=== PATIENT | male | born 1990 | race Caucasian/White ===

== ENCOUNTER 2023-09-16 19:55 | Inpatient (IN) | payer SELFPAY ==
[2023-09-16] VITALS (38 sets, daily range): BP systolic 101–140; BP diastolic 71–116; PULSE 94–123; RESP 10–27; TEMP 36.4; O2SAT 96
--- NOTE | 2023-09-16 20:17 | ED.GENADUL_ITS ---
Discharge Plan Disposition Patient Disposition: Admit to [facility] Condition: Serious Discharge Details Chief Complaint: DrugWithdr/MAT Clinical Impression: 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 (MSSA), Acute hyperkalemia Primary Care Provider: None,None ED Provider: Josue Min Home Meds and New Rx's Prescriptions: No Action No Known Home Meds Medical Decision Making 2139 --33-year-old male with history of IV drug use, hepatitis C, recent bacterial endocarditis, incompletely treated, here having missed his bus stop in [place], feeling fatigued and requesting treatment for endocarditis. Patient is tachycardic, normotensive and afebrile. I obtained and reviewed outside hospital records: Discharge summary from [facility] hospitalization 08/26/2023 through 09/08/2023 noted PV and TV bacterial endocarditis and MSSA bacteremia with septic emboli to the lungs. Patient was discharged with plan for continued IV cefazolin 2 g every 8 hours until anticipated end date of IV antimicrobial therapy on 10/06/2023. Patient has been noncompliant with treatment plan. He is here seeking treatment and agreeable to treatment tonight. Patient is homeless and unable to secure outpatient treatment at this time. Plan to hospitalize for IV antimicrobial therapy until outpatient plan can be established. Plan to check blood cultures. I will give dose of IV cefazolin 2 g at this time. 2199 --patient reassessed remains tachycardic despite IV fluids. Unclear if this is withdrawal or related to endocarditis. I spoke with with hospitalist Dr. Dawson, discussed ED presentation and course. He will admit the patient for continued IV antibiotics with plan to coordinate outpatient treatment when stabilized. -- Patient currently has warrant out for the rest. [place] police here to take patient into custody. They will have officer remain at bedside. I Lab Data Lab results reviewed: Yes I reviewed the patient's lab results. Labs: Laboratory Tests Range/Units 09/16/23 20:25 WBC (4.4-10.8) 10^3/uL 11.41 H RBC (4.36-5.78) 10^6/uL 4.44 Hgb (13.5-17.5) g/dL 11.4 L Hct (40.0-50.0) % 36.2 L MCV (80-95) fL 82 MCH (27.0-33.0) pg 25.7 L MCHC (32.0-36.0) % 31.5 L RDW (11.8-14.1) % 17.2 H Plt Count (130-400) 10^3/uL 310 MPV (8.0-11.0) fL 10.6 Immature Gran % 0.4 Neutrophils % 57.4 Lymphocytes % 31.0 Monocytes % 9.0 Eosinophils % 1.3 Basophils % 0.9 Nucleated RBC % (0.0-0.3) % 0.0 Absolute Neutrophils (1.2-6.7) 10^3/uL 6.55 Absolute Lymphocytes (1.2-3.4) 10^3/uL 3.54 H Absolute Monocytes (0.1-0.8) 10^3/uL 1.03 H Absolute Eosinophils (0.0-0.7) 10^3/uL 0.15 Absolute Basophils (0.0-0.2) 10^3/uL 0.10 Sodium (136-145) mmol/L 135 L Potassium (3.5-5.1) mmol/L 5.7 H Chloride (98-107) mmol/L 100 Carbon Dioxide (21.0-32.0) mmol/L 27.2 Anion Gap (3-11) mmol/L 7.8 BUN (7-18) mg/dL 20 H Creatinine (0.70-1.30) mg/dL 1.0 Est GFR (CKD-EPI 2020) (mL/min/1.73m2) 101.28 Glucose (74-106) mg/dL 91 Calcium (8.5-10.1) mg/dL 9.7 Magnesium (1.8-2.4) mg/dL 1.9 Total Bilirubin (0.2-1.0) mg/dL 0.7 AST (15-37) U/L 67 H ALT (16-63) U/L 42 Alkaline Phosphatase (46-116) U/L 105 Troponin I (<or=60) ng/L < 50 Total Protein (6.4-8.2) g/dL 9.1 H Albumin (3.4-5.0) g/dL 3.7 HPI General Mode of arrival: EMS . Date/Time Provider Initiated Documentation: 09/16/23 20:17 . Limitations to Documentation: other . Information obtained by: EMS . HPI Narrative: 33-year-old male with history of IV drug use, hepatitis C, diagnosed with endocarditis at outside hospital ([facility] and [facility]), hospitalized 08/24 to 09/08/2023 and discharged with plan for continued IV cefazolin for 6 weeks with anticipated end date 10/06/2023 patient notes that he was staying at a facility where he was receiving IV antibiotics and that the facility was in disrepair and he decided to leave there against advice. He notes he was in living on the streets in [place]. He was able to secure bus fare from [place] to [place] and apparently missed his stop tonight in [place] and found his way to [place]. Patient presents now requesting treatment for endocarditis. He notes he has been feeling fatigued. Patient is a poor historian which does limit history and review of systems. Patient last used Suboxone 4 days ago. Patient denies recent IV drug use. Related Data Home Medications Medication Instructions Recorded Confirmed Unknown [No Known Home Meds] 09/16/23 09/16/23 Allergies Allergy/AdvReac Type Severity Reaction Status Date / Time No Known Allergies Allergy Unverified 09/16/23 20:11 General Stated Complaint: DrugWithdr/MAT DIDIER: 2 Review of Systems All systems reviewed & are unremarkable except as noted in HPI and below Constitutional Constitutional: Reports fatigue and Denies fever(s) Endocrine Endocrine: Reports fatigue PFSH All Active Problems (Updated 09/16/23 @ 23:56 by Josue Min MD) Acute hyperkalemia (Acute) Tachycardia (Acute) IV drug abuse (Acute) 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 (MSSA) (Acute) Hepatitis C (Chronic) Social History Smoking risk assessment performed?: No Substance use type: heroin Exam Const General: cooperative Orientation: alert and awake HENMT Mouth: moist mucous membranes Eyes Conjunctivae: normal conjunctivae Neck Neck: trachea midline Resp Auscultation: clear to auscultation bilaterally, no rales, no rhonchi and no wheezes Cardio Rate: tachycardic Rhythm: regular rhythm GI Palpation: soft, not firm, no guarding, no masses, not rigid and nontender Skin General skin exam: no rashes or lesions noted Neuro General: patient alert, patient awake and tone normal Extrem General: no edema Psych Appearance: grossly normal Course Vital Signs Vital signs: Vital Signs Temperature 36.4 C L 09/16/23 19:55 Pulse 120 H 09/16/23 19:55 Respiratory Rate 18 09/16/23 19:55 Blood Pressure 140/116 H 09/16/23 19:55 Pulse Oximetry 96 09/16/23 19:55 Temperature 36.4 C L 09/16/23 19:55 Pulse 120 H 09/16/23 19:55 Respiratory Rate 18 09/16/23 19:55 Respiratory Effort Normal 09/16/23 20:01 Blood Pressure 140/116 H 09/16/23 19:55 Blood Pressure Position Supine 09/16/23 19:55 Pulse Oximetry 96 09/16/23 19:55 Oxygen Delivery Method Room Air 09/16/23 19:55 Oxygen Flow Rate 0 09/16/23 19:55 Pain Level 0 09/16/23 19:55
[2023-09-16 20:33] LABS: Abs Immature Grans 0.04 10^3/uL (0.0-0.06); Absolute Eosinophil Count 0.15 10^3/uL (0.0-0.7); Absolute Lymphocyte Count 3.54 10^3/uL (1.2-3.4); Absolute Monocyte Count 1.03 10^3/uL (0.1-0.8); Absolute Neutrophil Count 6.55 10^3/uL (1.2-6.7); Basophils % 0.9; Eosinophils % 1.3; HCT 36.2 % (40.0-50.0); HGB 11.4 g/dL (13.5-17.5); Immature Grans % 0.4; MCH 25.7 pg (27.0-33.0); MCHC 31.5 % (32.0-36.0); MCV 82 fL (80-95); MPV 10.6 fL (8.0-11.0); Neutrophils % 57.4; Platelet Count 310 10^3/uL (130-400); RBC 4.44 10^6/uL (4.36-5.78); RDW 17.2 % (11.8-14.1); RDW-SD 51.4 fL; WBC 11.41 10^3/uL (4.4-10.8)
[2023-09-16] MEDS: Lactated Ringers 1,000 ML 1000 ML IV ×2 (20:40→21:52)
[2023-09-16 20:51] LABS: ALT 42 U/L (16-63); AST 67 U/L (15-37); Albumin 3.7 g/dL (3.4-5.0); Alkaline Phosphatase 105 U/L (46-116); Anion Gap 7.8 mmol/L (3-11); BUN 20 mg/dL (7-18); Bilirubin, Total 0.7 mg/dL (0.2-1.0); CO2 27.2 mmol/L (21.0-32.0); Calcium 9.7 mg/dL (8.5-10.1); Chloride 100 mmol/L (98-107); Estimated GFR 101.28 (mL/min/1.73m2); Glucose 91 mg/dL (74-106); Magnesium 1.9 mg/dL (1.8-2.4); Potassium 5.7 mmol/L (3.5-5.1); Sodium 135 mmol/L (136-145); Total Protein 9.1 g/dL (6.4-8.2); Troponin I < 50 ng/L (<or=60)
--- NOTE | 2023-09-16 21:30 | RT.EKG_ITS ---
APPROVED REPORT Exam: Resting ECG Reason for Exam: endocarditis Patient Location: E HR:101 bpm ECG Measurements Heart Rate 101 AXIS [place] 168 P 73 QRSd 104 QRS 73 QT 346 T 52 QTc 450 Conclusion Sinus tachycardia...rate> 99
[2023-09-16 21:52] LABS: Lactate 1.4 mmol/L (0.6-1.4)
--- NOTE | 2023-09-16 22:05 | W.PM.HP.N ---
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 requested continuation of his IV antibiotic therapy -He did receive 1 dose 2 g of IV cefazolin emergency department -However, since that time it is determined that the patient has worn out for his progress on arrival of [facility] Police and being taken into custody he has declined all further treatment -if patient agrees to ongoing treatment will need to coordinate with Care Management regarding antibiotic regimen while patient is incarcerated (2) IV drug abuse: Status: Acute (3) Tachycardia: Status: Acute Assessment and plan: - Initially tachycardic in the emergency department with a heart rate about 100 -was given 1 L normal saline -unable to assess if he is currently tachycardic as patient refuses physical exam and vitals check (4) Hepatitis C: Status: Chronic Qualifiers: Hepatic coma status: without hepatic coma Viral hepatitis chronicity: unspecified Qualified Code(s): B19.20 - Unspecified viral hepatitis C without hepatic coma History of Present Illness History of Present Illness Chief Complaint: Treatment for endocarditis Narrative: 33-year-old male33 year-old male with the past medical history Hepatitis C and IV drug abuse resulting in MSSA bacteria and endocarditis who presents the emergency department wishing to continue his IV antibiotic therapy. Patient was recently diagnosed with endocarditis at [facility] and transferred to [facility] where he was hospitalized from August 24 to September 08, 2023 and was discharged with plan for continued IV cefazolin for 6 weeks with an anticipated end date of October 06 with a rehab facility where he was to continue IV antibiotics. However, patient stated that he left this facility AGAINST MEDICAL ADVICE due to facility being in disrepair. After which time he was living on the streets in [place] was able to secure a bus from [place] to [facility] however, patient slept through his bus stop and got off the bus and [facility] very. Upon getting off the bus patient states that he decided that he would not want continued treatment for his endocarditis and presents to the emergency department with his primary complaints and that he felt fatigued. In the emergency department patient was noticed being mildly tachycardic with heart rate of 100 bpm, with otherwise normal vital signs and physical exam. Augmentation was secured from [facility] which showed a of the patient was on IV cefazolin and had MSSA endocarditis with vegetations on his PV and TV, and confirmed antibiotic regimen with IV cefazolin 2 g every 8 hours from August 26, 2023 through October 06, 2023. CBC and CMP were unremarkable in the emergency department, patient was given his initial 2 g dose while in the emergency department. Which time emergency room physician paged hospitalist for admission. Patient with bacterial endocarditis requiring IV antibiotic therapy However, it was also discovered that there was a warrant after the patient's arrest in [facility]. Police took the patient into custody while he was in the emergency department. Since that time patient has been noncompliant with all medical staff and has refused additional doses of IV antibiotics. Review of Systems All systems reviewed & are unremarkable except as noted in HPI and below PFSH All Active Problems (Updated 09/16/23 @ 23:56 by Josue Min MD) Acute hyperkalemia (Acute) Tachycardia (Acute) IV drug abuse (Acute) 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 (MSSA) (Acute) Hepatitis C (Chronic) Social History Smoking/Tobacco Use Status: Never Smoking risk assessment performed?: Yes Substance use type: heroin Meds Allergies and Home Medications Allergies Allergy/AdvReac Type Severity Reaction Status Date / Time No Known Allergies Allergy Unverified 09/16/23 20:11 Home Medications Medication Instructions Recorded Confirmed Type Unknown [No Known Home Meds] 09/16/23 09/16/23 History Exam Narrative Exam Narrative: Patient was unwilling to allow physical exam upon arriving to [facility]. However, he is resting comfortably in bed, in no acute distress, respiratory rate heart rate appear to be within the normal limits, patient does have a multiple visible track silva in bilateral cubital fossa Results Labs 09/16/23 20:25 09/16/23 20:25 Labs: Laboratory Results - last 24 hr 09/16/23 09/16/23 20:25 21:48 WBC 11.41 H RBC 4.44 Hgb 11.4 L Hct 36.2 L MCV 82 MCH 25.7 L MCHC 31.5 L RDW 17.2 H Plt Count 310 MPV 10.6 Immature Gran % 0.4 Neutrophils % 57.4 Lymphocytes % 31.0 Monocytes % 9.0 Eosinophils % 1.3 Basophils % 0.9 Nucleated RBC % 0.0 Absolute Neutrophils 6.55 Absolute Lymphocytes 3.54 H Absolute Monocytes 1.03 H Absolute Eosinophils 0.15 Absolute Basophils 0.10 VBG Lactate 1.4 Sodium 135 L Potassium 5.7 H Chloride 100 Carbon Dioxide 27.2 Anion Gap 7.8 BUN 20 H Creatinine 1.0 Est GFR (CKD-EPI 2020) 101.28 Glucose 91 Calcium 9.7 Magnesium 1.9 Total Bilirubin 0.7 AST 67 H ALT 42 Alkaline Phosphatase 105 Troponin I < 50 Total Protein 9.1 H Albumin 3.7 Last Vital Signs Temp 97.5 F L 09/16/23 19:55 Pulse 109 H 09/16/23 21:01 Resp 20 09/16/23 21:01 BP 116/71 09/16/23 21:01 Pulse Ox 96 09/16/23 19:55 Time Spent Time spent with Patient: >75 minutes Time was spent: preparing to see the patient(eg.review tests), obtaining and/or reviewing separately otained hiistory, referring, communicating with other health client care representative, indepentently interpreting results, counseling the patient and care coordination
[2023-09-16 22:09] LABS: Creatine Kinase 70 U/L (39-308)
[2023-09-16] MEDS: ceFAZolin 2 GM/50 ML BAG IVPB (23:15)
[2023-09-16 23:42] LABS: Source Nasal/Nares
[2023-09-17] VITALS (8 sets, daily range): BP systolic 97–122; BP diastolic 68–87; PULSE 78–105; RESP 13–19; TEMP 36–37.2; O2SAT 94–99
[2023-09-17 00:14] LABS: COVID-19 PCR Negative (Negative)
--- NOTE | 2023-09-17 01:08 | NUR.NOTE ---
Nursing Note: Patient arrived on medical surgical floor at approximately 0021. Primary nurse approached patient to perform admission assessment including vital signs. Patient refused care at this time. This clinical coordinator approached patient and educated patient on need to take vital signs and other physical assessment. Patient refused these assessments. When asked if would allow, stated no. Patient then educated on need to receive antibiotics while a patient at hospital. When asked if patient would accept antibiotics to treat his infection, patient again stated no. This CC then called Dr. Dawson and informed him that patient has refused all care.
--- NOTE | 2023-09-17 01:32 | NUR.NOTE ---
Nursing Note: Patient was brought to [address] via stretcher accompanied by lady officer, drowsy but verbally aggressive when approached. Refused to answer questions for admission, Charge nurse asked if we can give his meds ,do vital signs , everything he answered was NO Charge nurse notified MD, will try to wait for next antibiotic IV at 0600 hrs. As of this time, patient is sleeping with officer on bedside. Nursing will continue to observe. Call lights at reach.
[2023-09-17] MEDS: Normal Saline Flush 10 ML SYR IVP (05:27)
--- NOTE | 2023-09-17 05:37 | NUR.NOTE ---
Nursing Note: Patient was approached for cephazolin IVPB. attempted to administered by the time this consumer loan underwriter touched his arm, patient covered the IID and stated No. Charge Nurse made aware and officers witnessed of patient behavior.
[2023-09-17 06:58] LABS: HCT 33.3 % (40.0-50.0); HGB 10.5 g/dL (13.5-17.5); MCH 25.7 pg (27.0-33.0); MCHC 31.5 % (32.0-36.0); MCV 82 fL (80-95); MPV 10.3 fL (8.0-11.0); Platelet Count 279 10^3/uL (130-400); RBC 4.08 10^6/uL (4.36-5.78); RDW 17.2 % (11.8-14.1); RDW-SD 51.6 fL; WBC 8.82 10^3/uL (4.4-10.8)
[2023-09-17] MEDS: ceFAZolin 2 GM/50 ML BAG IVPB ×3 (07:10→23:18)
[2023-09-17 07:11] LABS: Anion Gap 10.4 mmol/L (3-11); BUN 17 mg/dL (7-18); CO2 25.6 mmol/L (21.0-32.0); CREATININE 0.9 mg/dL (0.70-1.30); Calcium 9.1 mg/dL (8.5-10.1); Chloride 103 mmol/L (98-107); Estimated GFR 114.93 (mL/min/1.73m2); Glucose 83 mg/dL (74-106); Magnesium 1.8 mg/dL (1.8-2.4); Potassium 3.8 mmol/L (3.5-5.1); Sodium 139 mmol/L (136-145)
--- NOTE | 2023-09-17 11:58 | PGE_ITS ---
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 can complete course incarcerated at appropriate facility (2) IV drug abuse: Status: Acute Assessment and plan: hasn't used in 48 hours per patient monitor with prn clonidine and hydroxyzine as needed. (3) Tachycardia: Status: Resolved Assessment and plan: - Initially tachycardic in the emergency department with a heart rate about 100 -was given 1 L normal saline -heart rate normalized today (4) Hepatitis C: Status: Chronic Qualifiers: Hepatic coma status: without hepatic coma Viral hepatitis chronicity: unspecified Qualified Code(s): B19.20 - Unspecified viral hepatitis C without hepatic coma (5) Discharge planning issues: Status: Acute Assessment and plan: He is going to need a PICC line placed after blood cultures returned negative. He still remains under police custody and has a hearing on September 19 which she will attend via Zoom disposition will be determined after this meeting as he may remain in custody or he may be discharged from custody Discussed with Dr. Philippe Subjective Subjective Patient reports: no new complaints and afebrile Exam Const General: cooperative, comfortable, disheveled and other (Restless) Nutritional Appearance: average body habitus Orientation: alert and awake Limitations: other limitations (Intermittent refusal of care) [facility] Head: normal to inspection Mouth: oral mucosae normal Chest Chest: normal inspection of the chest Resp Effort & Inspection: normal respiratory effort Auscultation: clear to auscultation bilaterally Cardio Rate: regular rate Rhythm: regular rhythm Heart Sounds: murmur GI Inspection: normal to inspection Palpation: soft Skin General skin exam: other (Track silva left AC forearm) Neuro General: patient alert, patient awake and patient oriented x3 Extrem General: normal to inspection and full ROM Psych Appearance: disheveled Mental Status: mental status grossly normal Speech and Movement: restless Mood: labile mood Affect: blunted Attitude: avoids eye contact and refuses to answer (At times) Thought Process: normal Thought Content: normal Insight: limited Judgment: limited Objective Last Vital Signs Temp 37.2 C 09/17/23 11:13 Pulse 85 09/17/23 11:13 Resp 19 09/17/23 11:13 BP 114/86 09/17/23 11:13 Pulse Ox 96 09/17/23 11:13 Laboratory Results - last 24 hr 09/16/23 09/16/23 09/16/23 20:25 21:48 23:38 WBC 11.41 H RBC 4.44 Hgb 11.4 L Hct 36.2 L MCV 82 MCH 25.7 L MCHC 31.5 L RDW 17.2 H Plt Count 310 MPV 10.6 Immature Gran % 0.4 Neutrophils % 57.4 Lymphocytes % 31.0 Monocytes % 9.0 Eosinophils % 1.3 Basophils % 0.9 Nucleated RBC % 0.0 Absolute Neutrophils 6.55 Absolute Lymphocytes 3.54 H Absolute Monocytes 1.03 H Absolute Eosinophils 0.15 Absolute Basophils 0.10 VBG Lactate 1.4 Sodium 135 L Potassium 5.7 H Chloride 100 Carbon Dioxide 27.2 Anion Gap 7.8 BUN 20 H Creatinine 1.0 Est GFR (CKD-EPI 2020) 101.28 Glucose 91 Calcium 9.7 Magnesium 1.9 Total Bilirubin 0.7 AST 67 H ALT 42 Alkaline Phosphatase 105 Creatine Kinase 70 Troponin I < 50 Total Protein 9.1 H Albumin 3.7 COVID-19 Source Nasal/Nares SARS-CoV-2 (PCR) Negative 09/17/23 06:45 WBC 8.82 RBC 4.08 L Hgb 10.5 L Hct 33.3 L MCV 82 MCH 25.7 L MCHC 31.5 L RDW 17.2 H Plt Count 279 MPV 10.3 Immature Gran % Neutrophils % Lymphocytes % Monocytes % Eosinophils % Basophils % Nucleated RBC % Absolute Neutrophils Absolute Lymphocytes Absolute Monocytes Absolute Eosinophils Absolute Basophils VBG Lactate Sodium 139 Potassium 3.8 D Chloride 103 Carbon Dioxide 25.6 Anion Gap 10.4 BUN 17 Creatinine 0.9 Est GFR (CKD-EPI 2020) 114.93 Glucose 83 Calcium 9.1 Magnesium 1.8 Total Bilirubin AST ALT Alkaline Phosphatase Creatine Kinase Troponin I Total Protein Albumin COVID-19 Source SARS-CoV-2 (PCR) Time Spent with Patient Time Spent with Patient: 25-34 minutes Time was spent: preparing to see the patient(eg.review tests), obtaining and/or reviewing separately otained hiistory, ordering medications,tests, procedures, indepentently interpreting results and counseling the patient
--- NOTE | 2023-09-17 12:39 | INITIAL_ITS ---
Date of service: 09/17/23 Time of Service: 12:40 Care Management Initial Assmt Initial Assessment REASON FOR HOSPITALIZATION:: Endocarditis PREVIOUS FUNCTIONAL STATUS/SOCIAL/FAMILY SUPPORTS:: Josue is currently homeless; presents to [facility] in the custody of correctional officers. He is originally from [place], [place]. CURRENT FUNCTIONAL STATUS:: Josue was sitting up in bed when CM met with him; two correctional officers were in the room with him, and will remain during his hospitalization. CM verified that he will be discharged into the care of the correctional facility; facility to be determined by his needs upon discharge. Per report, he will likely require six weeks of IV antibiotics. The CO stated that he will likely be transported to the [facility], which has the ability to provide terminal operations supervisor IV abx. CM will coordinate with the medical team at [facility] once his antibiotic course is determined. CM will continue to follow. ADVANCE DIRECTIVES:: Not on file. Has patient been provided with info about the portal/API?: Yes Did the patient sign up for the portal?: No CODE STATUS:: Full Code INSURANCE COVERAGE / FINANCIAL ISSUES:: self pay; will contact [facility] for billing/insurance info CURRENT HOME/COMMUNITY SERVICES/EQUIPMENT:: Custody of [facility] PRIMARY CARE PHYSICIAN:: unknown; facility providers POTENTIAL DISCHARGE NEEDS:: Coordinated discharge with [facility] to provide terminal operations supervisor IV abx therapy. PATIENT/FAMILY EDUCATION NEEDS:: Review discharge instructions and limitations, discussion of self care needs including ask me three. ANTICIPATED BARRIERS TO DISCHARGE:: None identified. TRANSPORTATION:: Secure transport by correctional officers. PLAN:: Anticipate Josue will return to the custody of [facility], once his abx course is determined. He will transport by correctional officers securely. He will follow up with facility providers and his discharge plan of care. CM will continue to follow. PFSH All Active Problems (Updated 09/17/23 @ 12:02 by Luz Maria Escobedo NP) Acute hyperkalemia (Acute) IV drug abuse (Acute) 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 (MSSA) (Acute) Hepatitis C (Chronic) Social History Smoking/Tobacco Use Status: Never Smoking risk assessment performed?: Yes Substance use type: heroin
[2023-09-17 15:04] LABS: *AMPHETAMINES SCREEN URINE Negative (Negative); *BARBITURATES SCREEN URINE Negative (Negative); *BENZODIAZEPINES SCREEN URINE Negative (Negative); Cannabinoids THC Negative (Negative); Cocaine Screen,Urine Negative (Negative); METHADONE URINE SCREEN Negative (Negative); OPIATES URINE SCREEN Negative (Negative)
[2023-09-17 15:08] LABS: Tricyclic Antidepressants Negative (Negative)
[2023-09-18] MEDS: ceFAZolin 2 GM/50 ML BAG IVPB ×3 (06:01→22:14)
[2023-09-18 06:12] VITALS: BP 112/80; PULSE 63; RESP 16; TEMP 36.2; O2SAT 99
--- NOTE | 2023-09-18 11:57 | W.PM.PROGNOT ---
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 can complete course incarcerated at appropriate facility (2) IV drug abuse: Status: Acute Assessment and plan: no withdrawal symptoms monitor with prn clonidine and hydroxyzine if needed. (3) Tachycardia: Status: Resolved Assessment and plan: no further tachycardia (4) Hepatitis C: Status: Chronic Qualifiers: Hepatic coma status: without hepatic coma Viral hepatitis chronicity: unspecified Qualified Code(s): B19.20 - Unspecified viral hepatitis C without hepatic coma (5) Discharge planning issues: Status: Acute Assessment and plan: He is going to need a PICC line placed after blood cultures returned negative. He still remains under police custody and has a hearing on September 19 which she will attend via Zoom disposition will be determined after this meeting as he may remain in custody or he may be discharged from custody Discussed with Dr. Philippe Subjective Subjective Patient reports: no new complaints, tolerating liquids well, tolerating a regular diet and afebrile; denies shortness of breath Exam Const General: cooperative and comfortable Nutritional Appearance: average body habitus Orientation: alert and awake HENMT Head: normal to inspection Mouth: oral mucosae normal Chest Chest: normal inspection of the chest Resp Effort & Inspection: normal respiratory effort Auscultation: clear to auscultation bilaterally Cardio Rate: regular rate Rhythm: regular rhythm Heart Sounds: murmur GI Inspection: normal to inspection Palpation: soft Skin General skin exam: other (Track silva left AC forearm) Neuro General: patient alert, patient awake and patient oriented x3 Extrem General: normal to inspection and full ROM Psych Mental Status: mental status grossly normal Affect: blunted Thought Process: normal Thought Content: normal Insight: limited Judgment: limited Objective Last Vital Signs Temp 36.2 C L 09/18/23 06:12 Pulse 63 09/18/23 06:12 Resp 16 09/18/23 06:12 BP 112/80 09/18/23 06:12 Pulse Ox 99 09/18/23 06:12 Laboratory Results - last 24 hr 09/17/23 14:05 Urine Opiates Screen Negative Urine Methadone Screen Negative Ur Barbiturates Screen Negative Ur Tricyclics Screen Negative Ur Amphetamines Screen Negative U Benzodiazepines Scrn Negative Urine Cocaine Screen Negative Ur THC Screen Negative Time Spent with Patient Time Spent with Patient: 25-34 minutes Time was spent: preparing to see the patient(eg.review tests), obtaining and/or reviewing separately otained hiistory, ordering medications,tests, procedures and indepentently interpreting results
[2023-09-18 16:53] VITALS: BP 115/78; PULSE 78
[2023-09-19] MEDS: ceFAZolin 2 GM/50 ML BAG IVPB ×3 (06:03→22:00)
[2023-09-19 06:05] VITALS: BP 123/84; PULSE 75; RESP 20; TEMP 36.2; O2SAT 99
[2023-09-19 07:08] LABS: Abs Immature Grans 0.07 10^3/uL (0.0-0.06); Absolute Eosinophil Count 0.24 10^3/uL (0.0-0.7); Absolute Lymphocyte Count 4.01 10^3/uL (1.2-3.4); Absolute Monocyte Count 0.69 10^3/uL (0.1-0.8); Absolute Neutrophil Count 4.04 10^3/uL (1.2-6.7); Basophils % 1.1; Eosinophils % 2.6; HCT 34.5 % (40.0-50.0); Immature Grans % 0.8; Lymphocytes % 43.8; MCH 26.1 pg (27.0-33.0); MCHC 31.9 % (32.0-36.0); MCV 82 fL (80-95); MPV 10.7 fL (8.0-11.0); Monocytes % 7.5; Neutrophils % 44.2; Platelet Count 276 10^3/uL (130-400); RBC 4.21 10^6/uL (4.36-5.78); RDW-SD 50.4 fL; WBC 9.15 10^3/uL (4.4-10.8)
[2023-09-19 07:38] LABS: ALT 27 U/L (16-63); AST 38 U/L (15-37); Albumin 2.8 g/dL (3.4-5.0); Alkaline Phosphatase 81 U/L (46-116); Anion Gap 11.1 mmol/L (3-11); BUN 11 mg/dL (7-18); Bilirubin, Total 0.3 mg/dL (0.2-1.0); C-Reactive Protein 0.34 mg/dL (0.0-0.3); CO2 24.9 mmol/L (21.0-32.0); CREATININE 0.8 mg/dL (0.70-1.30); Calcium 8.4 mg/dL (8.5-10.1); Chloride 105 mmol/L (98-107); Glucose 94 mg/dL (74-106); Potassium 3.8 mmol/L (3.5-5.1); Sodium 141 mmol/L (136-145); Total Protein 7.2 g/dL (6.4-8.2)
--- NOTE | 2023-09-19 08:34 | CMPROGNOTE_ITS ---
Date of service: 09/19/23 Time of Service: 08:34 Care Management Progress Note Progress Note Text Progress Note Text: S/O: Josue is being closely monitored and treated for endocarditis. His is currenlty in DOC custody and [facility] guards are present with him at all times during his hospitalization. Cultures are pending. Nancy from [facility] is notified that Josue will likely need 6 weeks of IV on discharge, cultures are pending. Per Nancy, discharge will be coordinated by [facility] when medical correctional facility in [place] or [place] when known. Josue will get a PICC line once cultures are negative. A: 33 year old male admitted to [facility] on 09/16/23 with endocarditis P: Anticipate Josue will return to the custody of [facility], once his IV abx course is determined. He will transport by correctional officers securely. He will follow up with facility providers and his discharge plan of care. CM will continue to follow.
--- NOTE | 2023-09-19 08:34 | PDOC.CMPRO ---
Date of service: 09/19/23 Time of Service: 08:34 Care Management Progress Note Progress Note Text Progress Note Text: S/O: Josue is being closely monitored and treated for endocarditis. His is currenlty in DOC custody and [facility] guards are present with him at all times during his hospitalization. Cultures are pending. Nancy from [facility] is notified that Josue will likely need 6 weeks of IV on discharge, cultures are pending. Per Nancy, discharge will be coordinated by [facility] when medical correctional facility in [place] or [place] when known. Josue will get a PICC line once cultures are negative. A: 33 year old male admitted to [facility] on 09/16/23 with endocarditis P: Anticipate Josue will return to the custody of [facility], once his IV abx course is determined. He will transport by correctional officers securely. He will follow up with facility providers and his discharge plan of care. CM will continue to follow.
--- NOTE | 2023-09-19 09:24 | W.PM.PROGNOT ---
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 that [facility] Will continue 2 g cefazolin every 8 hours for 6 weeks, blood cultures negative so far X 48 hours , 72 hours 09/20 at 22:30, final report pending (day 2 of 6 weeks if negative as he had break in his treatment) PICC will be placed after negative blood culture result; if remains negative will consult for PICC placement to continue outpatient management can complete course incarcerated at appropriate facility (2) IV drug abuse: Status: Acute Assessment and plan: Patient is calm; no withdrawal symptoms Will conitune to monitor prn clonidine and hydroxyzine if needed. (3) Tachycardia: Status: Resolved Assessment and plan: no further tachycardia, Hr 74-78 (4) Hepatitis C: Status: Chronic Qualifiers: Hepatic coma status: without hepatic coma Viral hepatitis chronicity: unspecified Qualified Code(s): B19.20 - Unspecified viral hepatitis C without hepatic coma (5) Discharge planning issues: Status: Acute Assessment and plan: PICC line to be placed after blood cultures returned negative for 72 hours. Patient remains under police custody and has a hearing on September 19 which she will attend via Zoom disposition will be determined after this meeting as he may remain in custody or he may be discharged from custody DVT prophylaxis : considering lovenox SC if a candidate due to any hypercoaguability Discussed with Dr. Landeros Subjective Subjective Patient reports: no new complaints, feels better, tolerating liquids well, tolerating a regular diet, voiding w/o difficulty, flatus, no bowel movement (since admission), diarrhea, afebrile and other; denies still having pain, nausea, vomiting, shortness of breath or fever Exam Narrative Exam Narrative: Constitutional The patient is lying in bed comfortable,appears tired and cooperative during the interview. The patient is without acute distress but is thin. HENMT: Head is atraumatic, normocephalic, no lymphadenopathy. Facial structures with normal appearance Eyes: Well aligned, pupils 4 in day light Neck: Normal ROM, no meningeal signs Neuro:alert and oriented to self, person, place time and situation. No neurological focal deficit Chest:Chest is symmetrical Resp: Normal respiratory pattern, speaks in full sentences, unlabored breathing, clear lung bilaterally Cardio: regular rhythm, S1, S2, no murmur, capillary refill<3 sec., bilateral radial and dorsalis pedis pulses are positive, palpable GI: Abdomen is not distended, soft and non tender, bowel sounds are present : Negative Costovertebral angle tenderness, no bladder distension Back/spine/Pelvis: No back tenderness, normal alignment Integumentary: No skin lesions or rash Extremities: strength 5/5 to bilateral lower and upper extremities Psych: RASS 0, congruent mood and normal affect. Objective Last Vital Signs Temp 36.2 C L 09/19/23 06:05 Pulse 75 09/19/23 06:05 Resp 20 09/19/23 06:05 BP 123/84 09/19/23 06:05 Pulse Ox 99 09/19/23 06:05 Laboratory Results - last 24 hr 09/19/23 06:04 WBC 9.15 RBC 4.21 L Hgb 11.0 L Hct 34.5 L MCV 82 MCH 26.1 L MCHC 31.9 L RDW 17.0 H Plt Count 276 MPV 10.7 Immature Gran % 0.8 Neutrophils % 44.2 Lymphocytes % 43.8 Monocytes % 7.5 Eosinophils % 2.6 Basophils % 1.1 Nucleated RBC % 0.0 Absolute Neutrophils 4.04 Absolute Lymphocytes 4.01 H Absolute Monocytes 0.69 Absolute Eosinophils 0.24 Absolute Basophils 0.10 Sodium 141 Potassium 3.8 Chloride 105 Carbon Dioxide 24.9 Anion Gap 11.1 H BUN 11 Creatinine 0.8 Est GFR (CKD-EPI 2020) 119.10 Glucose 94 Calcium 8.4 L Total Bilirubin 0.3 AST 38 H ALT 27 Alkaline Phosphatase 81 C-Reactive Protein 0.34 H Total Protein 7.2 Albumin 2.8 L Time Spent with Patient Time Spent with Patient: >50 minutes Time was spent: preparing to see the patient(eg.review tests), ordering medications,tests, procedures, referring, communicating with other health career transition specialist, indepentently interpreting results, counseling the patient and care coordination
[2023-09-19] MEDS: Normal Saline Flush 10 ML SYR IVP ×2 (15:09→21:59)
[2023-09-19 15:16] VITALS: BP 115/79; PULSE 74; RESP 16; TEMP 36.4; O2SAT 100
[2023-09-19] MEDS: Enoxaparin 40 MG/0.4 ML SYR SC (19:01)
[2023-09-19 19:48] VITALS: TEMP 37
[2023-09-19] MEDS: Acetaminophen 325 MG TAB PO (19:48)
[2023-09-19] MEDS: Docusate Sodium 100 MG CAP PO (19:49)
[2023-09-19 21:23] VITALS: BP 111/75; PULSE 79; RESP 18; TEMP 37; O2SAT 99
[2023-09-20] MEDS: Normal Saline Flush 10 ML SYR IVP ×4 (05:52→14:40)
[2023-09-20] MEDS: ceFAZolin 2 GM/50 ML BAG IVPB ×2 (05:52→13:36)
[2023-09-20 07:55] VITALS: BP 116/82; PULSE 80; RESP 18; TEMP 35.2; O2SAT 100
--- NOTE | 2023-09-20 08:42 | CMPROGNOTE_ITS ---
Date of service: 09/20/23 Time of Service: 08:42 Care Management Progress Note Progress Note Text Progress Note Text: S/O: Josue is being closely monitored and treated for endocarditis. His is currently in DOC custody and [facility] guards are present with him at all times during his hospitalization. Josue will need meterman IV ABX and received a PICC line today. Per Katharine Urbina from the DOC, Josue will be going to their [place] location. She is also trying to figure out the payer source for this hospitalization. CM will follow. A: 33 year old male admitted to [facility] on 09/16/23 with endocarditis P: Anticipate Josue will return to the custody of [facility], once his IV abx course is determined. He will transport by correctional officers securely. He will follow up with facility providers and his discharge plan of care. CM will continue to follow.
--- NOTE | 2023-09-20 08:42 | PDOC.CMPRO ---
Date of service: 09/20/23 Time of Service: 08:42 Care Management Progress Note Progress Note Text Progress Note Text: S/O: Josue is being closely monitored and treated for endocarditis. His is currently in DOC custody and [facility] guards are present with him at all times during his hospitalization. 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 Per Katharine Urbina from the DOC, Josue will be going to their [place] location. She is also trying to figure out the payer source for this hospitalization. CM will follow. A: 33 year old male admitted to [facility] on 09/16/23 with endocarditis P: Anticipate Josue will return to the custody of [facility], once his IV abx course is determined. He will transport by correctional officers securely. He will follow up with facility providers and his discharge plan of care. CM will continue to follow.
--- NOTE | 2023-09-20 09:02 | W.PM.DS.N ---
Date of service: 09/20/23 Time of Service: 09:02 DS: Diagnosis Discharge Diagnosis (1) 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 (MSSA): Status: Acute (2) IV drug abuse: Status: Acute (3) Tachycardia: Status: Resolved (4) Hepatitis C: Status: Chronic (5) Discharge planning issues: Status: Acute Discharge Plan Disposition Patient Disposition: [facility] Condition: Improving Discharge Details Reason For Visit: Endocarditis Admit Date/Time: 09/16/23 22:01 Admit Provider: Calos Dawson Attending Provider: Calos Dawson Primary Care Provider: None,None Hospital Course Hospital Course: This 33-year-old patient with the past medical history Hepatitis C and IV drug abuse resulting in Methicillin Sensitive Staphylococcus Aureus bacteria and endocarditis presented the [facility] ED on 09/16/23 wishing to continue his IV antibiotic therapy. The patient was recently diagnosed with endocarditis at [facility] and transferred to [facility] where he was hospitalized from August 24 to September 08, 2023 and was discharged with plan for continued IV cefazolin for 6 weeks with an anticipated end date of October 06 with a rehab facility where he was to continue IV antibiotics. However, patient stated that he left this facility AGAINST MEDICAL ADVICE due to facility being in disrepair. After which time he was living on the streets in [place] was able to secure a bus from [place] to [facility] however, patient slept through his bus stop and got off the bus and [facility]. Upon getting off the bus patient states that he decided that he would ?want continued treatment for his endocarditis and presents to the emergency department with his primary complaints and that he felt fatigued. In the ED, the patient was noticed being mildly tachycardic with heart rate of 100 bpm, with otherwise normal vital signs and physical exam. Documentation ?from [facility] which showed a of the patient was on IV cefazolin and had Methicillin Sensitive Staphylococcus Aureus endocarditis with vegetations on his PV and TV, and confirmed antibiotic regimen with IV cefazolin 2 g every 8 hours from August 26, 2023 through October 06, 2023 initially. Lab results in the ED were unremarkable, blood cultures drawn, and the patient initiated treatment with cefazolin 2 g dose IV. The hospitalist was contacted and the patient was admitted for treatment of bacterial endocarditis requiring IV antibiotic therapy. The patient was in custody of law enforcement officers due to a pending warrant discovered during the stay in the ED resulting in increased non-compliance with staff and refusal of additional doses of IV antibiotics. During the stay, the patient was treated with Cefazolin 2 gm IV every 8 hours while remaining in law enforcement custody. Blood cultures were negative for 72 hours as of 09/19/22 at 22:30 and a PICC line was inserted for continuation of treatment in a correctional facility with the appropriate setting. However due to the non-compliance with the initial treatment, the 6-week count for treatment was restarted and treatment with cefazolin 2gm IV every 8 hours ?will continue until 10/27/2023. Further management as per the medical transcriber of the correctional facility. Home Meds and New Rx's Prescriptions: New cefazolin in dextrose (iso-os) 2 gram/50 mL Piggyback 50 ml IV Q8H Qty: 108 0RF Rx Instructions: Pharmacy will dispense 4 doses as the supply from the correctional facility is insufficient to cover until . Discharge Instructions Stand Alone Forms: Nursing Discharge Form Activity:: Activity as Tolerated Equipment/Supplies:: No Equipment Needed Diet:: As Tolerated Discharge Orders Discharge Orders: Discharge Order (Routine); Ordered 09/20/23 Ordered By: Nallely Caputo DS: Summary Time Spent with Patient providing and/or coordinating discharge services: Greater than 30 minutes Status at Discharge Functional status at discharge: independent ambulation Overall status at discharge: patient is back to baseline Mental Status: mental status grossly normal Speech and Movement: speech and movement normal Mood: congruent mood Affect: normal affect Exam Narrative Exam Narrative: Constitutional The patient is lying in bed, c/o general achyness, no fevers, and cooperative during the interview. The patient is without acute distress and is thin. HENMT: Head is atraumatic, normocephalic, no lymphadenopathy. Facial structures with normal appearance Eyes: Well aligned, intact ROM Neck: Normal ROM, no meningeal signs Neuro:alert and oriented to self, person, place, month and year and situation. No neurological focal deficit, PERRLA 4 on ambient light Chest:Chest is symmetrical and normal appearance Resp: Normal respiratory pattern, speaks in full sentences, unlabored breathing, clear lung bilaterally Cardio: regular rhythm, S1, S2,bilateral radial and dorsalis pedis pulses are positive, palpable GI: Abdomen is not distended, soft and non tender, bowel sounds are present : no bladder distension Back/spine/Pelvis: No back tenderness, normal alignment Integumentary: No skin lesions or rash Extremities: strength 5/5 to bilateral lower and upper extremities Psych: RASS 0, congruent mood and sad affect. Psych Mental Status: mental status grossly normal Speech and Movement: speech and movement normal Mood: congruent mood Affect: normal affect DS: Data Vitals/I&O Vitals and I&O: Vital Signs Temperature 35.2 C L 09/20/23 07:55 Temperature Source Tympanic 09/20/23 07:55 Pulse 80 09/20/23 07:55 Pulse Rhythm Regular 09/20/23 01:00 Pulse 104 H 09/17/23 00:01 Respiratory Rate 18 09/20/23 07:55 Respiratory Effort Normal, Non-Labored 09/20/23 01:00 Respiratory Depth Normal 09/20/23 01:00 Respiratory Pattern Normal 09/20/23 01:00 Blood Pressure 116/82 09/20/23 07:55 Blood Pressure Mean 95 09/17/23 00:00 Blood Pressure Position Supine 09/16/23 19:55 Pulse Oximetry 100 09/20/23 07:55 Oxygen Delivery Method Room Air 09/20/23 07:55 Oxygen Flow Rate 0 09/20/23 07:55 Pain Level 8 09/20/23 07:55 Comment Pt. denies pain at this time. 09/20/23 07:35 Intake & Output 09/19/23 09/19/23 09/20/23 11:59 23:59 11:59 Intake Total 50 / 150 100 / 150 Output Total 1120 / 1520 400 / 1520 300 / 300 Balance -1070 / -1370 -300 / -1370 -300 / -300 Intake: IV 50 / 150 100 / 150 Output: Urine 1120 / 1520 400 / 1520 300 / 300 Other: Urine Color Light [place] Yellow Urine Appearance Clear Clear Clear Urine Odor None Voiding Methods Urinal Urinal Data Completed and Pending Labs on day of discharge: Preliminary micro results at discharge 09/16/23 22:17 Blood Culture - Preliminary Blood NO GROWTH 72 HOURS 09/16/23 22:17 Blood Culture - Preliminary Blood NO GROWTH 72 HOURS 09/16/23 22:26 Blood Culture - Preliminary Blood NO GROWTH 72 HOURS 09/16/23 22:30 Blood Culture - Preliminary Blood NO GROWTH 72 HOURS PFSH All Active Problems (Updated 09/17/23 @ 21:37 by Luz Maria Escobedo NP) Discharge planning issues (Acute) Acute hyperkalemia (Acute) IV drug abuse (Acute) 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
--- NOTE | 2023-09-20 09:02 | W.PM.PROGNOT ---
Date of Service Date of service: 09/20/23 Time of Service: 09:03 Objective Last Vital Signs Temp 35.2 C L 09/20/23 07:55 Pulse 80 09/20/23 07:55 Resp 18 09/20/23 07:55 BP 116/82 09/20/23 07:55 Pulse Ox 100 09/20/23 07:55
[2023-09-20 10:46] LABS: Abs Immature Grans 0.06 10^3/uL (0.0-0.06); Absolute Basophil Count 0.09 10^3/uL (0.0-0.2); Absolute Eosinophil Count 0.15 10^3/uL (0.0-0.7); Absolute Lymphocyte Count 2.81 10^3/uL (1.2-3.4); Absolute Monocyte Count 0.65 10^3/uL (0.1-0.8); Basophils % 0.9; Eosinophils % 1.5; HCT 35.9 % (40.0-50.0); HGB 11.4 g/dL (13.5-17.5); Immature Grans % 0.6; Lymphocytes % 27.4; MCH 26.3 pg (27.0-33.0); MCHC 31.8 % (32.0-36.0); MCV 83 fL (80-95); MPV 10.7 fL (8.0-11.0); Monocytes % 6.3; Neutrophils % 63.3; Platelet Count 268 10^3/uL (130-400); RBC 4.33 10^6/uL (4.36-5.78); RDW 17.2 % (11.8-14.1); RDW-SD 51.4 fL; WBC 10.26 10^3/uL (4.4-10.8)
[2023-09-20 10:53] LABS: Anion Gap 8.2 mmol/L (3-11); BUN 14 mg/dL (7-18); CO2 26.8 mmol/L (21.0-32.0); Calcium 8.7 mg/dL (8.5-10.1); Chloride 103 mmol/L (98-107); Estimated GFR 101.28 (mL/min/1.73m2); Glucose 93 mg/dL (74-106); Potassium 4.2 mmol/L (3.5-5.1); Sodium 138 mmol/L (136-145)
--- NOTE | 2023-09-20 12:45 | DI.RAD_ITS ---
Exam(s) XR PORTABLE CHEST AP POST LINE EXAM: XR PORTABLE CHEST AP POST LINE CLINICAL HISTORY: PICC Placement TECHNIQUE: 2D digital imaging was performed. COMPARISON: No exams were available for comparison FINDINGS: A PICC line has been placed via the left arm. The tip projects in the lower SVC. LUNGS: suboptimally inflated. No focal consolidation. No pleural abnormality seen. HEART: Normal size. AORTA: Normal diameter. BONES: Unremarkable for age. Soft tissues: Unremarkable. IMPRESSION: Satisfactory placement of PICC line. DATA REPOSITORY: RADIATION DOSE DELIVERED:
--- NOTE | 2023-09-20 12:54 | NUR.NOTE ---
Nursing Note: At approximately 1254 on 09/20/23, this RN attempted to call a nurse to nurse report to a nurse at [facility]. RN will attempt to call a nurse to nurse report again later.
[2023-09-20] MEDS: Normal Saline 500 ML 100 ML IV (13:35)
--- NOTE | 2023-09-20 14:25 | NUR.NOTE ---
Addendum entered by Marian De 09/20/23 14:32: Phone number for [facility]: # . Original Note: Nursing Note: At approximately 1310 on 09/20/23, this RN called [facility] and gave a nurse to nurse report on the pt. to Surekha (nurse at [facility]). This RN informed Surekha regarding pt.'s mentation, VS, pain level, head to toe assessment, plan of care, including continued administration of IV cefazolin (Ancef) for six weeks for treatment of endocarditis, placement of a left upper arm PICC line earlier today for administration of the IV antibiotics, etc. Surekha verbalized understanding and presented with a few questions that were answered. Surekha was then provided with the phone number for the Medical/Surgical unit at [facility] in case any questions arose. Surekha was informed that there was no discharge order yet, but that the pt. was supposed to be getting discharged later on today (09/20/23). Surekha denied any other questions at that time. Call then ended.
[2023-09-20 15:04] VITALS: BP 113/74; PULSE 82; RESP 18; TEMP 35.9; O2SAT 98
--- NOTE | 2023-09-20 16:51 | PDOC.CMDIS ---
Date of service: 09/20/23 Time of Service: 16:51 LACE Index Scoring Tool Questions: Length of Stay (in days): 4 - 6 Was the patient admitted via the E.D.?: Yes E.D. Visits: 1 Answers: Total Score: 8 Risk of Readmission: Low Risk Care Management Discharge Plan Reason for Hospitalization: Endocarditis Discharge Plan: Josue is discharge in [facility]. He is transported via [facility]. He will follow up with discharge plan of care as instructed. He will need LT IV ABX and is going to a [facility] in [place], [place] which per DOC is able to support his care needs. Patient/Family Education Needs: Review discharge instructions, limitations, medication and plan to follow up with facility/community providers. Discuss ask me three and goals of self care.
== END 2023-09-20 16:33 | DRG 290 ==
LOC: ER 23:56 → MS 09-17 00:24
PROVIDERS: Nurse Practitioner Acute Care; Admitting Provider Family Medicine; Emergency Provider Student in an Organized Health Care Education/Training Program; Visit Provider Family Medicine
DX: I33.0 Acute and subacute infective endocarditis (principal); B95.61 Methicillin susceptible Staphylococcus aureus infection as the cause of diseases classified elsewhere; F19.10 Other psychoactive substance abuse, uncomplicated; B18.2 Chronic viral hepatitis C; R00.0 Tachycardia, unspecified; E87.5 Hyperkalemia
CPT/HCPCS: 36569; 00123; 36410; 36415; 36573; 71045; 80048; 80053; 80307; 82550; 85027; 87040; 87635; 93005; J1650; 83605; 83735; 84484; 85025; 86140; 93010; 99223; 99232; 99233; 99239; J0690